=== PATIENT | female | born 1950 | race Caucasian/White ===

== ENCOUNTER → 2018-10-01 | Day surgery (SDC) | payer BC, MEDICARE ==
[~2018-10-01] MED LIST: ALBU2.5V8 IH; ASPI-482 PO; BUPR100T7 PO; CELE200C PO; CHOL100013 PO; EZET10TA18 PO; FAMO-63 PO; IV RINGERS,LACTATED 1000ML 1,000 ML IV SCH; LIDOCAINE 1% PF 2 ML VIAL. ID PRN; MECL25TA3 PO; MIDAZOLAM HCL/PF 2 MG/2 ML VIAL. IV PRN; OMEG1CAP66 PO; PHEN37.599 PO; PRAV20TA2 PO; PROPOFOL 40 ML IV ONE; SUMA25TA3 PO; VITA400C36 PO; ZAFI10TA5 PO; fentaNYL PF VIAL 100 MCG/2 ML VIAL IV PRN
--- NOTE | 2018-10-01 08:19 | HP ---
ADMIT DATE: 10/01/2018 UPDATED HISTORY AND PHYSICAL REASON FOR CONSULTATION: History of colonic polyps. HISTORY OF PRESENT ILLNESS: This is a 68-year-old female with past medical history significant for diverticulosis, colonic polyps, asthma, arthritis, hyperlipidemia, is seen for interval colon exam. Bowel habits are regular without diarrhea or constipation. There has been no melena and/or hematochezia. Weight and appetite are stable. She is otherwise without additional complaints. PAST MEDICAL HISTORY: Colonic polyps, diverticulosis, asthma, arthritis, duodenal ulcers, hyperlipidemia. ALLERGIES: SULFA, AMOXICILLIN, AZITHROMYCIN, CEPHALEXIN AND CLAVULANIC ACID. MEDICATIONS: Include albuterol, aspirin, bupropion, vitamin D3, Zetia, Pepcid, meclizine, omega 3, pravastatin, Imitrex, vitamin E Alkavit. PAST SURGICAL HISTORY: Hysterectomy, cholecystectomy, breast surgery. FAMILY AND SOCIAL HISTORY: She is . Former smoker, nondrinker. REVIEW OF SYSTEMS: Per records. PHYSICAL EXAMINATION: GENERAL: This is a well-nourished, well-developed female who is alert and cooperative in no acute distress. VITAL SIGNS: Temp is 97.2, pulse 76, respirations 18. HEENT: Normocephalic and atraumatic head. Pupils and extraocular muscles are not tested. Sclerae anicteric. NECK: Supple. LUNGS: Clear. CARDIOVASCULAR: Reveals an S1, S2 without S3, S4 or appreciable murmur. ABDOMEN: Soft abdomen, normal bowel sounds without appreciable hepatosplenomegaly. EXTREMITIES: Reveals no cyanosis, clubbing, edema. IMPRESSION: History of colonic polyps. Surveillance exam is recommended at this time. Risks and benefits of procedure including risk of hemorrhage and perforation during the operation have been discussed. The patient is willing to proceed. BALWINDER CHACKO MD DR: [email or web address]/yocasta JOB#: [id number] / [id number]
[2018-10-01 08:40] VITALS: BP 147/77
== END ==
LOC: SURG 06:28
PROVIDERS: ATTEND Internal Medicine Gastroenterology
DX: Z12.11 Encounter for screening for malignant neoplasm of colon (principal); K57.30 Diverticulosis of large intestine without perforation or abscess without bleeding; K64.0 First degree hemorrhoids; J45.909 Unspecified asthma, uncomplicated; E78.5 Hyperlipidemia, unspecified; Z86.010 Personal history of colon polyps; Z88.1 Allergy status to other antibiotic agents; Z88.8 Allergy status to other drugs, medicaments and biological substances; Z90.710 Acquired absence of both cervix and uterus; Z90.49 Acquired absence of other specified parts of digestive tract; Z98.890 Other specified postprocedural states; Z87.891 Personal history of nicotine dependence
CPT/HCPCS: 45378; J2704